=== PATIENT | female | born 1985 | race Two or more races ===

== ENCOUNTER 2018-09-25 22:20 | Emergency (ER) | payer MEDICAID ==
[~2018-09-25] VITALS: Ht 165.1 cm; Wt 98.7 kg
[2018-09-25 22:26] VITALS: BP 192/128
== END 2018-09-25 23:38 | disposition home or self-care (01) ==
LOC: ER 22:22
DX: S00.03XA Contusion of scalp, initial encounter (principal); R11.0 Nausea; R42 Dizziness and giddiness; I10 Essential (primary) hypertension; G43.909 Migraine, unspecified, not intractable, without status migrainosus; Z88.2 Allergy status to sulfonamides; W22.8XXA Striking against or struck by other objects, initial encounter; Y93.89 Activity, other specified; Y92.89 Other specified places as the place of occurrence of the external cause; Y99.8 Other external cause status
CPT/HCPCS: 99281

== ENCOUNTER 2019-04-27 19:31 | Inpatient (IN) | payer MEDICAID ==
[~2019-04-27] VITALS: Ht 165.1 cm; Wt 110.0 kg
[2019-04-27] MEDS ORDERED: ondansetron/PF 4mg/2ml inj IV ONE (22:40)
[2019-04-27] MEDS ORDERED: morphine 4 MG/ML inj SYRINge IV ONE (22:40)
[2019-04-27 23:18] LABS: BASOPHILS # (AUTO) 0.1 X10'3 (0-0.2); EOSINOPHILS # (AUTO) 0.2 X10'3 (0-0.9); EOSINOPHILS % (AUTO) 1.9 % (0-6); HEMATOCRIT 37.3 % (35.0-45.0); HEMOGLOBIN 12.5 g/dl (12.0-16.0); LYMPHOCYTES # (AUTO) 3.1 X10'3 (1.1-4.8); LYMPHOCYTES % (AUTO) 28.4 % (21-51); MEAN CORPUSCULAR HEMOGLOBIN 30.7 PG (27.0-31.0); MEAN CORPUSCULAR HGB CONC 33.6 g/dL (33.0-36.5); MEAN CORPUSCULAR VOLUME 91.3 FL (78-98); MEAN PLATELET VOLUME 7.4 FL (7.4-10.4); MONOCYTES % (AUTO) 9.2 % (2-12); NEUTROPHILS # (AUTO) 6.4 X10'3 (1.8-7.7); NEUTROPHILS % (AUTO) 59.5 % (42-75); PLATELET COUNT 291 X10'3 (140-440); RED BLOOD COUNT 4.09 X10'6 (4.20-5.60); RED CELL DISTRIBUTION WIDTH 13.3 % (11.5-14.5); WHITE BLOOD COUNT 10.8 X10'3 (4.5-11.0)
[2019-04-27] MEDS ORDERED: iohexol 300mg/ml 100ml inj. ONE (23:27)
[2019-04-27] MEDS ORDERED: MECL-111 PO (23:29)
[2019-04-27] MEDS ORDERED: BENA1TAB19 PO (23:29)
[2019-04-27] MEDS ORDERED: GABA600T13 PO (23:29)
[2019-04-27] MEDS ORDERED: PROP40TA72 PO (23:29)
[2019-04-27] MEDS ORDERED: SERT100T PO (23:29)
[2019-04-27] MEDS ORDERED: BACL10TA PO (23:29)
[2019-04-27 23:32] LABS: ALANINE AMINOTRANSFERASE 25 U/L (12-78); ALBUMIN 3.5 G/DL (3.4-5.0); ALBUMIN/GLOBULIN RATIO 0.9 (1.1-1.5); ALKALINE PHOSPHATASE 104 IU/L (46-116); ANION GAP 9 (8-16); ASPARTATE AMINO TRANSFERASE 12 U/L (10-37); BILIRUBIN,TOTAL 0.1 MG/DL (0.1-1.0); BLOOD UREA NITROGEN 19 MG/DL (7-18); BUN/CREATININE RATIO 21.6 (6.6-38.0); CHLORIDE 105 MMOL/L (99-107); CREATININE 0.88 MG/DL (0.40-0.90); GLUCOSE 78 MG/DL (70-104); POTASSIUM 3.7 MMOL/L (3.5-5.1); SODIUM 143 MMOL/L (135-145); TOTAL CARBON DIOXIDE 29.2 MMOL/L (24-32); TOTAL PROTEIN 7.2 G/DL (6.4-8.2); eGFR 73 ML/MIN
[2019-04-28] MEDS ORDERED: vancomycin/NS 1 GM ADD-VANTAGE 250 ML X 1 DOSE IV ONE (00:25)
[2019-04-28] MEDS ORDERED: magnesium hydroxide 30ml (MOM) UD suspension PO PRN (00:30)
[2019-04-28] MEDS ORDERED: acetaminophen 325mg tablet PO PRN ×2 (00:30)
[2019-04-28] MEDS ORDERED: HYDROcodone/acetaminophen 10/325mg tab PO PRN (00:30)
[2019-04-28] MEDS ORDERED: mag hydrox/Alum hydrox/simeth 30ml oral suspension PO PRN (00:30)
[2019-04-28] MEDS ORDERED: morphine 2 MG/ML inj. syringe IV PRN ×2 (00:30)
[2019-04-28] MEDS ORDERED: ondansetron/PF 4mg/2ml inj IV PRN (00:30)
[2019-04-28] MEDS ORDERED: HYDROcodone/acetaminophen 5mg/325mg tablet PO PRN (00:30)
[2019-04-28] MEDS ORDERED: meclizine 12.5mg tablet PO PRN (01:20)
--- NOTE | 2019-04-28 02:40 | NUR ---
I have received report from Evelin GIL RN and had the opportunity to ask questions and assume patient care.
[2019-04-28 05:20] LABS: HCG SERUM QL NEGATIVE
--- NOTE | 2019-04-28 06:08 | NUR ---
Problems reprioritized. Patient report given, questions answered & plan of care reviewed with Viji MIR.
[2019-04-28 07:00] VITALS: BP 127/71
--- NOTE | 2019-04-28 07:00 | NUR ---
Patient in room [facility]. I have received report from devi mg and had the opportunity to ask questions and assume patient care.
[2019-04-28] MEDS ORDERED: vancomycin/NS 1 GM ADD-VANTAGE 250 ML IV SCH (08:00)
[2019-04-28] MEDS ORDERED: HYDROchlorothiazide 25mg tablet PO SCH (08:00)
[2019-04-28] MEDS: sertraline 50mg tablet PO SCH (08:37)
[2019-04-28] MEDS: gabapentin 300mg capsule PO SCH ×3 (08:37→20:03)
[2019-04-28] MEDS: baclofen 10mg tablet PO SCH ×3 (08:37→20:03)
[2019-04-28] MEDS: lisinopril 20mg tablet PO SCH (08:37)
--- NOTE | 2019-04-28 13:23 | NUR ---
Malnutrition consult: Attempted visit with pt at bedside however pt was out of the room. Patient's current wt is up 11 kg since September of this year. Pt currently on regular diet documented with 25% PO intake x 1 meal so far. No edema or decrease in muscle strength. Pt currently does not meet criteria for malnutrition. Will continue to follow and monitor need for ONS pending additional trends in PO intake. Addendum: 04/28/19 at [address] Amended: Links added.
[2019-04-28 18:00] VITALS: BP 105/73
--- NOTE | 2019-04-28 18:05 | NUR ---
Patient in room [facility]. I have received report from DAMARIS MIR and had the opportunity to ask questions and assume patient care.
--- NOTE | 2019-04-28 18:31 | NUR ---
Problems reprioritized. Patient report given, questions answered & plan of care reviewed with shawn mg.
[2019-04-28] MEDS: propranolol 40mg tablet PO SCH (20:03)
[2019-04-28] MEDS: lactobacillus rhamnosus 10,000 MMU CELLS/CAPSULE PO SCH (20:03)
[2019-04-29] VITALS (12 sets, daily range): BP systolic 95–124; BP diastolic 57–79
--- NOTE | 2019-04-29 06:00 | NUR ---
Problems reprioritized. Patient report given, questions answered & plan of care reviewed with Graciela MIR.
--- NOTE | 2019-04-29 06:30 | NUR ---
Patient in room [facility]. I have received report from Candy MIR and had the opportunity to ask questions and assume patient care.
[2019-04-29] MEDS: gabapentin 300mg capsule PO SCH ×3 (07:58→20:51)
[2019-04-29] MEDS: baclofen 10mg tablet PO SCH ×3 (07:59→20:51)
[2019-04-29] MEDS: lactobacillus rhamnosus 10,000 MMU CELLS/CAPSULE PO SCH ×2 (07:59→20:51)
[2019-04-29] MEDS: HYDROchlorothiazide 12.5mg capsule PO SCH (07:59)
[2019-04-29] MEDS: lisinopril 20mg tablet PO SCH (07:59)
[2019-04-29] MEDS: sertraline 50mg tablet PO SCH (08:00)
[2019-04-29] MEDS ORDERED: VANCOMYCIN LEVEL IV ONE (08:30)
[2019-04-29 09:48] LABS: BASOPHILS # (AUTO) 0.1 X10'3 (0-0.2); BASOPHILS % (AUTO) 0.6 % (0-1); EOSINOPHILS # (AUTO) 0.1 X10'3 (0-0.9); HEMATOCRIT 39.9 % (35.0-45.0); HEMOGLOBIN 13.2 g/dl (12.0-16.0); LYMPHOCYTES # (AUTO) 1.2 X10'3 (1.1-4.8); MEAN CORPUSCULAR HEMOGLOBIN 30.2 PG (27.0-31.0); MEAN CORPUSCULAR VOLUME 91.5 FL (78-98); MEAN PLATELET VOLUME 7.3 FL (7.4-10.4); MONOCYTES # (AUTO) 0.8 X10'3 (0-0.9); MONOCYTES % (AUTO) 6.5 % (2-12); NEUTROPHILS # (AUTO) 10.8 X10'3 (1.8-7.7); NEUTROPHILS % (AUTO) 82.9 % (42-75); PLATELET COUNT 298 X10'3 (140-440); RED BLOOD COUNT 4.36 X10'6 (4.20-5.60); RED CELL DISTRIBUTION WIDTH 13.3 % (11.5-14.5)
[2019-04-29 10:01] LABS: ALBUMIN 3.1 G/DL (3.4-5.0); ANION GAP 10 (8-16); BLOOD UREA NITROGEN 12 MG/DL (7-18); BUN/CREATININE RATIO 17.9 (6.6-38.0); CALCIUM 8.8 MG/DL (8.5-10.1); CHLORIDE 103 MMOL/L (99-107); CREATININE 0.67 MG/DL (0.40-0.90); GLUCOSE 127 MG/DL (70-104); POTASSIUM 3.7 MMOL/L (3.5-5.1); SODIUM 139 MMOL/L (135-145); TOTAL CARBON DIOXIDE 26.4 MMOL/L (24-32); eGFR > 90 ML/MIN
--- NOTE | 2019-04-29 18:02 | NUR ---
Problems reprioritized. Patient report given, questions answered & plan of care reviewed with Pat RN.
[2019-04-29] MEDS: propranolol 40mg tablet PO SCH (20:51)
[2019-04-30 05:30] LABS: ANION GAP 10 (8-16); BLOOD UREA NITROGEN 15 MG/DL (7-18); CALCIUM 8.8 MG/DL (8.5-10.1); CHLORIDE 105 MMOL/L (99-107); GLUCOSE 96 MG/DL (70-104); POTASSIUM 3.8 MMOL/L (3.5-5.1); SODIUM 140 MMOL/L (135-145); TOTAL CARBON DIOXIDE 24.9 MMOL/L (24-32); eGFR > 90 ML/MIN
[2019-04-30 05:36] LABS: BASOPHILS # (AUTO) 0.1 X10'3 (0-0.2); BASOPHILS % (AUTO) 0.5 % (0-1); EOSINOPHILS # (AUTO) 0.2 X10'3 (0-0.9); EOSINOPHILS % (AUTO) 1.5 % (0-6); HEMOGLOBIN 13.4 g/dl (12.0-16.0); LYMPHOCYTES # (AUTO) 2.5 X10'3 (1.1-4.8); LYMPHOCYTES % (AUTO) 24.2 % (21-51); MEAN CORPUSCULAR HEMOGLOBIN 30.2 PG (27.0-31.0); MEAN CORPUSCULAR HGB CONC 33.6 g/dL (33.0-36.5); MEAN CORPUSCULAR VOLUME 89.9 FL (78-98); MEAN PLATELET VOLUME 7.4 FL (7.4-10.4); MONOCYTES # (AUTO) 0.7 X10'3 (0-0.9); NEUTROPHILS # (AUTO) 6.8 X10'3 (1.8-7.7); NEUTROPHILS % (AUTO) 66.8 % (42-75); PLATELET COUNT 339 X10'3 (140-440); RED BLOOD COUNT 4.45 X10'6 (4.20-5.60); RED CELL DISTRIBUTION WIDTH 13.2 % (11.5-14.5); WHITE BLOOD COUNT 10.2 X10'3 (4.5-11.0)
--- NOTE | 2019-04-30 06:06 | NUR ---
Problems reprioritized. Patient report given, questions answered & plan of care reviewed with CLARKE Owens.
--- NOTE | 2019-04-30 06:10 | NUR ---
Patient in room [facility]. I have received report from PAT RN and had the opportunity to ask questions and assume patient care.
[2019-04-30] MEDS: gabapentin 300mg capsule PO SCH (07:18)
[2019-04-30] MEDS: HYDROchlorothiazide 12.5mg capsule PO SCH (07:19)
[2019-04-30] MEDS: lactobacillus rhamnosus 10,000 MMU CELLS/CAPSULE PO SCH (07:19)
[2019-04-30] MEDS: baclofen 10mg tablet PO SCH (07:19)
[2019-04-30] MEDS: sertraline 50mg tablet PO SCH (07:19)
[2019-04-30] MEDS: lisinopril 20mg tablet PO SCH (07:19)
[2019-04-30 08:24] VITALS: BP 112/70
[2019-04-30] MEDS ORDERED: LINE600T12 PO (10:51)
[2019-04-30 11:31] VITALS: BP 117/74
--- NOTE | 2019-04-30 12:00 | NUR ---
patient discharged, walked out independently with friend. Patient has all paper work and education completed. Patient will find [facility], or us walk in clinic. Follow up will be in 1 week and Mammogram in 2 weeks, patient acknowledges verbal education on importance of follow up and medication completion. Patient will lease picker medication called into [facility]. All belongings bagged and taken home. Patient left room without notifying nurse that she was leaving, although all discharge instructions were completed and understood. Patient agrees to take full regimen of antibiotics and educated if fever occurs to come to ER. KARRI nix.
== END 2019-04-30 11:50 | disposition home or self-care (01) | DRG 385 ==
LOC: ER 19:33 → SUR 3N 04-28 03:26
PROVIDERS: ADMIT Internal Medicine; ATTEND Family Medicine
PROC: 0H9TXZZ (ICD-10-PCS; principal; 2019-04-29)
DX: N61.1 Abscess of the breast and nipple (principal); G62.9 Polyneuropathy, unspecified; I10 Essential (primary) hypertension; F32.9 Major depressive disorder, single episode, unspecified; F15.90 Other stimulant use, unspecified, uncomplicated; F12.90 Cannabis use, unspecified, uncomplicated; F41.9 Anxiety disorder, unspecified; G43.909 Migraine, unspecified, not intractable, without status migrainosus; G89.29 Other chronic pain; M54.9 Dorsalgia, unspecified; Z88.2 Allergy status to sulfonamides; Z88.8 Allergy status to other drugs, medicaments and biological substances; Z98.891 History of uterine scar from previous surgery; Z79.899 Other long term (current) drug therapy; Z71.51 Drug abuse counseling and surveillance of drug abuser
CPT/HCPCS: 10030; 36415; 71260; 80048; 80053; 80202; 83605; 84703; 85025; 87040; 87070; 87075; 87077; 87081; 87186; 96374; 96375; 99285; G0378; J2270; J2405; J3370; Q9967